=== PATIENT | female | born 1990 | race Caucasian/White ===

== ENCOUNTER → 2019-07-03 | Outpatient (CLI) | payer OTHER ==
--- NOTE | 2019-07-03 08:10 | US ---
EXAMINATION TYPE: US pelvic complete DATE OF EXAM: 07/03/2019 COMPARISON: NONE CLINICAL HISTORY: N92.0 Excessive and frequent menstruation with reg. Heavy bleeding with menses. TECHNIQUE: Transabdominal (TA Date of LMP: 06/07/2019 EXAM MEASUREMENTS: Uterus: 8.3 x 4.7 x 5.3 cm Endometrial Stripe: 0.6 cm Right Ovary: 2.8 x 1.6 x 2.1 cm Left Ovary: 2.7 x 1.4 x 2.3 cm 1. Uterus: Anteverted wnl 2. Endometrium: wnl 3. Right Ovary: wnl 4. Left Ovary: wnl. 5. Bilateral Adnexa: wnl 6. Posterior cul-de-sac: wnl IMPRESSION: Endometrial thickness is within normal limits for a premenopausal female measuring 0.6 cm . Myometrium is homogeneous. No discrete leiomyoma is seen. Unremarkable pelvic ultrasound.
== END | disposition home or self-care (01) ==
LOC: RADUSWWP 07:23
PROVIDERS: ATTEND Family Medicine
DX: N92.0 Excessive and frequent menstruation with regular cycle (principal)
CPT/HCPCS: 76856

== ENCOUNTER → 2019-07-24 | Outpatient (CLI) | payer OTHER ==
--- NOTE | 2019-07-24 09:58 | USB ---
Reason for exam: clinical finding. 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 US Breast Limited BILAT Right limited breast ultrasound including focal area of concern, retroareolar and axilla demonstrates no cystic or solid lesion seen. Left complete breast ultrasound includes all four quadrants, the retroareolar region and axilla. Finding demonstrates no cystic or solid lesion seen. These results were verbally communicated with the patient and result sheet given to the patient on 07/24/19. ASSESSMENT: Negative, BI-RAD 1 RECOMMENDATION: Routine screening mammogram of both breasts at age 33. Manage on a clinical basis with regard to pain and palpable.
== END | disposition home or self-care (01) ==
LOC: RADUSWWP 08:08
PROVIDERS: ATTEND Family Medicine
DX: N63.20 Unspecified lump in the left breast, unspecified quadrant (principal); N63.10 Unspecified lump in the right breast, unspecified quadrant

== ENCOUNTER → 2020-12-07 | Outpatient (CLI) | payer OTHER ==
--- NOTE | 2020-12-07 15:32 | CONS ---
CONSULTATION DATE OF SERVICE: 12/07/2020 A 30-year-old lady who has been evaluated in the sleep center for possible obstructive sleep apnea-hypopnea syndrome. HISTORY OF PRESENT ILLNESS/SLEEP-WAKE EVALUATION: The patient usual sleep schedule on weekdays from 10:30 p.m. to 6 a.m. on weekends from 11:30 p.m. to 9 a.m. She does have problems with falling asleep. It may take more than 30 minutes for her to fall asleep. She has TV set in the bedroom. She usually sleeps on the side position and stomach position. According to her , she snores and has witnessed episodes of stopped breathing during sleep by him. She wakes up from sleep 2 times with one episode of nocturia. In the morning, the patient wakes up tired, has episodes of anxiety. [place] Sleepiness Scale increased to 10. PAST MEDICAL HISTORY: Basically negative. PAST SURGICAL HISTORY: . MEDICATIONS: None. FAMILY HISTORY: Stroke, heart problems, asthma, diabetes, sleep apnea. REVIEW OF SYSTEMS: Multiple awakenings from sleep, sleepiness during the day. PHYSICAL EXAMINATION: GENERAL: lady without distress. VITAL SIGNS: BP 108/67, HR 71, RR 12, height 5 feet 3 inches, weight 201.2, temperature 97.8, oxygen saturation at room air 98%. HEENT: PERRLA, EOMI. Oropharynx low position of soft palate. Mallampati 3. NECK: 14 inches in circumference. LUNGS: Clear to percussion and to auscultation. Good air exchange. No wheezing or rhonchi. HEART: S1, S2 regular. No murmurs, gallops, or rubs. ABDOMEN: Soft and nontender. Bowel sounds are present. No organomegaly appreciated. EXTREMITIES: No clubbing or cyanosis. [employer] HELPER: Awake, alert, and oriented X3. Cranial nerves 2 to 7 intact. There is no fasciculation or atrophy. noted. No focal deficits observed. IMPRESSION: 1. Snoring, witnessed episodes of stopped breathing during sleep. Awakenings from sleep with nocturia, low position of soft palate, sleepiness. [place] Sleepiness Scale increased to 10. Obstructive sleep apnea-hypopnea syndrome. 2. Obesity, body mass index 35.6. 3. Status post . 4. Sleepiness and fatigue during the day. PLAN: 1. Polysomnography for evaluation of patient's breathing during sleep. 2. CPAP/BiPAP titration if sleep study confirms obstructive sleep apnea-hypopnea syndrome. 3. Preferable position during sleep on the side. 4. No driving if patient feels any sleepiness. 5. I will see patient for follow up visit to explain results of testing and following plan. Thank you very much for referring this patient for consultation. Sincerely, Ron Worthy MD, PhD, FAASM Diplomat of [employer] [place] [employer] [place] [employer] [facility] MMODL / IJN: [id number] /
== END ==
LOC: SLEEP 13:43
PROVIDERS: ATTEND Internal Medicine
DX: G47.33 Obstructive sleep apnea (adult) (pediatric) (principal); E66.9 Obesity, unspecified; Z68.35 Body mass index [BMI] 35.0-35.9, adult; Z98.890 Other specified postprocedural states
CPT/HCPCS: 99211

== ENCOUNTER 2021-08-31 09:23 | Observation (INO) | payer OTHER ==
[2021-08-31] MEDS ORDERED: ASPIRIN 81 MG PO STA (09:48)
[2021-08-31] MEDS ORDERED: NITROGLYCERIN SL TABS 0.4 MG TAB SUBLINGUAL STA (09:48)
--- NOTE | 2021-08-31 09:54 | ED ---
Chest Pain HPI - General Chief Complaint: Chest Pain Stated Complaint: Chest Pain Time Seen by Provider: 08/31/21 09:31 Source: patient, RN notes reviewed Mode of arrival: ambulatory Limitations: no limitations - History of Present Illness Initial Comments: 31-year-old female with a history of protein C clotting disorder but no prior history of heart or lung disease who states she had the onset around 5 PM last evening of retrosternal chest pressure feeling who was on her chest no more than 3/10 severity but this morning around 4 5 AM surgery rating to her left shoulder and left neck up to her left ear. She has some dizziness some shortness of breath and palpitations no fevers chills nausea vomiting sweats cough or phlegm production no recent reports of heavy lifting. She was seen by her PCP this morning and directed to come here for evaluation. 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 Nothing seems make the pain worse or better. MD Complaint: chest pain - Related Data Home Medications Medication Instructions Recorded Confirmed No Known Home Medications 08/31/21 08/31/21 Allergies Allergy/AdvReac Type Severity Reaction Status Date / Time No Known Allergies Allergy Verified 08/31/21 09:56 Review of Systems ROS Statement: Those systems with pertinent positive or pertinent negative responses have been documented in the HPI. ROS Other: All systems not noted in ROS Statement are negative. EKG Findings - EKG Results: EKG: interpreted by JULIO CESAR, sinus rhythm (Sinus rhythm a 68. A 150 QRS 70 QT since QTC 392/[address]-T wave changes) Past Medical History Additional Past Medical History / Comment(s): protein C clotting disorder History of Any Multi-Drug Resistant Organisms: None Reported Past Surgical History: Section Past Psychological History: No Psychological Hx Reported Smoking Status: Never smoker Past Alcohol Use History: None Reported Past Drug Use History: None Reported General Exam - General Exam Comments Initial Comments: This is a well-developed well-nourished awake alert oriented 3 female Limitations: no limitations General appearance: anxious Head exam: Present: atraumatic, normocephalic, normal inspection Eye exam: Present: normal appearance, PERRL, EOMI. Absent: scleral icterus, conjunctival injection, periorbital swelling ENT exam: Present: normal exam, mucous membranes moist Neck exam: Present: normal inspection, full ROM, other (Spell or bruits). Absent: tenderness, meningismus, lymphadenopathy Respiratory exam: Present: normal lung sounds bilaterally. Absent: respiratory distress, wheezes, rales, rhonchi, stridor Cardiovascular Exam: Present: regular rate, normal rhythm, normal heart sounds. Absent: systolic murmur, diastolic murmur, rubs, gallop, clicks GI/Abdominal exam: Present: soft, normal bowel sounds. Absent: distended, tenderness, guarding, rebound, rigid, bruit, pulsatile mass Extremities exam: Present: normal inspection, full ROM, normal capillary refill. Absent: tenderness, pedal edema, joint swelling, calf tenderness Back exam: Present: normal inspection Neurological exam: Present: alert, oriented X3, CN II-XII intact Psychiatric exam: Present: normal affect, normal mood Skin exam: Present: warm, dry, intact, normal color. Absent: rash Course Vital Signs 08/31/21 08/31/21 08/31/21 09:26 10:31 11:18 Temperature 99 F Pulse Rate 78 76 Pulse Rate [ 74 Sitting Pulse Oximetery] Respiratory 18 18 Rate Blood Pressure 138/86 123/92 O2 Sat by Pulse 98 96 Oximetry 08/31/21 12:22 Temperature Pulse Rate 89 Pulse Rate [ Sitting Pulse Oximetery] Respiratory 18 Rate Blood Pressure 123/84 O2 Sat by Pulse 99 Oximetry Chest Pain MDM - MDM Imaging reviewed no evidence of infiltrates PE or abnormalities I did a long discussion with the patient regarding the findings she currently asymptomatic however was having intermittent discomfort she will be admitted for inpatient evaluation she has requested Dr. Leonardo who is agreed to accept her on her service. Disposition Clinical Impression: Chest pain Disposition: ADMITTED IP TO THIS [facility] Condition: Stable Referrals: Conrado Doherty MD [Primary Care Provider] - 1-2 days
[2021-08-31 10:12] LABS: Basophils # (A) 0.1 k/uL (0-0.2); Basophils % (A) 1 %; Eosinophils # (A) 0.2 k/uL (0-0.7); Eosinophils % (A) 3 %; HCT 45.8 % (34.0-46.0); HGB 15.6 gm/dL (11.4-16.0); Lymphocytes # (A) 2.1 k/uL (1.0-4.8); Lymphocytes % (A) 32 %; MCH 31.3 pg (25.0-35.0); Mean Platelet Volume 7.6; Monocytes # (A) 0.3 k/uL (0-1.0); Monocytes % (A) 5 %; Neutrophils # (A) 3.8 k/uL (1.3-7.7); Neutrophils % (A) 58 %; Platelet Count 335 k/uL (150-450); RBC 4.98 m/uL (3.80-5.40); RDW 12.6 % (11.5-15.5); WBC 6.6 k/uL (3.8-10.6)
[2021-08-31 10:34] LABS: INR 0.9 (<1.2); Partial Thromboplastin Time 24.8 sec (22.0-30.0); Prothrombin Time 10.1 sec (9.0-12.0)
[2021-08-31 10:36] LABS: ALT 20 U/L (4-34); AST 27 U/L (14-36); African American GFR (CKD) >90 (>60 ml/min/1.73 sqM); Albumin 4.4 g/dL (3.5-5.0); Alkaline Phosphatase 86 U/L (38-126); Anion Gap 10 mmol/L; Blood Urea Nitrogen 11 mg/dL (7-17); Calcium 9.7 mg/dL (8.4-10.2); Carbon Dioxide 22 mmol/L (22-30); Chloride 106 mmol/L (98-107); Glucose 97 mg/dL (74-99); Lipase 123 U/L (23-300); Magnesium 1.5 mg/dL (1.6-2.3); Non-African American GFR(CKD) >90 (>60 ml/min/1.73 sqM); Potassium 4.1 mmol/L (3.5-5.1); Sodium 138 mmol/L (137-145); Total Bilirubin 0.6 mg/dL (0.2-1.3); Total Protein 7.5 g/dL (6.3-8.2)
--- NOTE | 2021-08-31 11:29 | XR ---
EXAMINATION TYPE: XR chest 2V DATE OF EXAM: 08/31/2021 COMPARISON: NONE HISTORY: Chest pain TECHNIQUE: Frontal and lateral views of the chest are obtained. FINDINGS: There is no focal air space opacity. No evidence for pneumothorax. No pleural effusion. The cardiac silhouette size is within normal limits. The osseous structures are grossly intact. IMPRESSION: 1. No acute cardiopulmonary process.
--- NOTE | 2021-08-31 12:48 | CT ---
EXAMINATION TYPE: CT angio chest DATE OF EXAM: 08/31/2021 COMPARISON: Chest x-ray 08/31/2021 HISTORY: Left sided chest and shoulder pain. CT DLP: 366.2 mGycm Automated exposure control for dose reduction was used. CONTRAST: CTA scan of the thorax is performed with IV Contrast, patient injected with 100 mL of Isovue 370, pul monary embolism protocol. MIP images are created and reviewed. 3D reconstructed images are created on an independent workstation and reviewed. FINDINGS: LUNGS: The lungs are showing a nodule in the right lower lung, 8 mm in size, smooth margins in the choudhury bpleural location, axial image 73. Minimal atelectatic change suspected in the lingula. There is no pleural effusion or pneumothorax seen. The tracheobronchial tree is patent. AORTA: No additional significant abnormality is seen. MEDIASTINUM: There is satisfactory enhancement of the pulmonary artery and its branches, there is no CT evidence for pulmonary embolism. There are no greater than 1 cm hilar or mediastinal lymph nodes. No pericardial effusion is seen. OTHER: No additional significant abnormality is seen. IMPRESSION: NO PULMONARY EMBOLISM. INDETERMINATE LUNG NODULE RIGHT LOWER LOBE, INDETERMINATE, FOLLOW-UP RECOMMEND ED
[2021-08-31] MEDS ORDERED: NITROGLYCERIN SL TABS 0.4 MG TAB SUBLINGUAL PRN (13:52)
[2021-08-31] MEDS ORDERED: HEPARIN SODIUM 1,000 UN/ML (10ML VL) IV ONE (13:52)
[2021-08-31] MEDS ORDERED: HEPARIN SOD,PORK IN 0.45% NACL 25,000 UNIT in 0.45% NACL 1 250ML.BAG IV SCH (14:00)
[2021-08-31] MEDS ORDERED: SODIUM CHLORIDE 0.9% 1,000 ML IV SCH (14:00)
[2021-08-31] MEDS ORDERED: ACETAMINOPHEN TAB 325 MG TAB PO PRN (15:31)
[2021-08-31] MEDS ORDERED: IPRATROPIUM-ALBUTEROL 3 ML NEB INHALATION PRN (15:31)
[2021-08-31] MEDS ORDERED: ONDANSETRON 4 MG/2 ML VIAL IVP PRN (15:31)
--- NOTE | 2021-08-31 15:41 | P.HPIM ---
History of Present Illness H&P Date: 08/31/21 History of present illness 31 years old female patient of Dr. Alanis with with history of protein C deficiency comes in with acute onset of chest pressure that started at 5 in the evening and persisted to the morning. 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 She denies any shortness of breath or sweating associated with chest pressure. The chest pain was substernal and radiated to the jaw and her neck. She has significant family history of coronary artery disease and her mother had heart disease in the early 30s. Vitals evaluated in the ER patient had temp of 99 pulse 78 respiratory rate 18 blood pressure 138/86 oxygenating at 98% room air Labs are reviewed WBC 6.6 hemoglobin 15.6 d-dimer 0.69 and creatinine 0.85 glucose 97 magnesium was 1.5 mg once a normal troponin 1 is negative Due to patient's significant family history and typical chest pain, associated need to be ruled out. Patient will be kept in observation with repeat in troponin. Cardiology consulted echocardiogram ordered. Patient may benefit from a stress test. EKG suggested normal sinus rhythm with with T-wave inversions involving inferior leads CT angiogram was negative for PE ROS Constitutional: Denies chills, Denies fever, Denies lethargy, Denies malaise, Denies poor appetite, Denies weakness, Denies weight loss Eyes: denies decreased vision, denies diplopia, denies discharge, denies pain Ears: deny: decreased hearing Ears, nose, mouth and throat: Denies dental pain, Denies headache, Denies nasal discharge, Denies nose pain Cardiovascular: Endorses chest pain, Denies decreased exercise tolerance, Denies edema, Denies high blood pressure, Denies irregular heart beat, Denies palpitations, Denies paroxysmal nocturnal dyspnea, Denies rapid heart beat, Denies shortness of breath Respiratory: Denies congestion, Denies cough, Denies cough with sputum, Denies dyspnea, Denies home oxygen, Denies wheezing Gastrointestinal: Denies abdominal pain, Denies change in bowel habits, Denies coffee ground emesis, Denies early satiety, Denies excessive gas, Denies heartburn, Denies hematemesis, Denies hematochezia, Denies loss of appetite, Denies nausea, Denies vomiting Genitourinary: Denies dysuria, Denies flank pain, Denies kidney stones, Denies menorrhagia, Denies urgency, Denies urinary frequency Musculoskeletal: Denies gait dysfunction, Denies limitation of motion, Denies morning stiffness, Denies muscle cramps Integumentary: Denies rash, Denies wounds, Denies brittle nails, Denies change in hair/nails, Denies darkening of skin Neurological: Denies balance difficulties, Denies change in speech, Denies double vision, Denies gait dysfunction, Denies loss of vision, Denies motor disturbance, Denies numbness, Denies paralysis, Denies paresthesias, Denies seizures Psychiatric: Denies anxiety, Denies depression Endocrine: Denies excessive sweating, Denies excessive thirst, Denies high blood sugars, Denies palpitations Hematologic/Lymphatic: Denies easy bruising, Denies lymphadenopathy Social history Nonsmoker Nondrinker No illicit drug use Family history Mother at 50, had significant coronary artery disease with multiple stents. Patient mother had early coronary artery disease in her 30s Father is alive is coronary artery bypass grafting, 3 myocardial infarction, stroke, diabetes started having heart disease in his 50s One sister with high blood pressure 1 brother no significant medical problems 1 children no significant medical problem 4 miscarriages due to protein C deficiency Physical exam - Constitutional General appearance: cooperative, no acute distress, obese - EENT Eyes: anicteric sclerae, PERRLA, normal appearance ENT: hearing grossly normal - Neck Neck: no lymphadenopathy, normal ROM, no other, no rigidity, no stridor, no thyromegaly - Respiratory Respiratory: bilateral: CTA, negative: diminished, dullness, rales, rhonchi - Cardiovascular Rhythm: Tachycardia Heart sounds: normal: S1, S2 Abnormal Heart Sounds: no systolic murmur, no diastolic murmur, no rub, no S3 Gallop, no S4 Gallop, no click, no other - Gastrointestinal General gastrointestinal: normal bowel sounds, soft nontender - Integumentary Integumentary: no rash - Neurologic Neurologic: No gross motor deficit- Musculoskeletal Musculoskeletal: gait normal, strength equal bilaterally - Psychiatric Psychiatric: A&O x's 3, appropriate affect Assessment and plan Acute typical chest pain -Rule out ACS - EKG suggests or T-wave inversions in inferior leads - Aspirin 81 mg by mouth daily - Echocardiogram ordered - Cardiology consulted - Troponin 3q3 - TSH ordered - Lipid panel ordered - We'll evaluate with stress test if negative patient may benefit with Protonix for 3 months and possible event monitor to evaluate for arrhythmias Hypomagnesemia - Status post 2 g magnesium sulfate Protein C deficiency - Patient high risk of DVT, clotting disorder and strokes -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 DVT prophylaxis -Encourage ambulation GI prophylaxis - Protonix 40 mg by mouth daily Patient to be admitted for at least 2 inpatient nights for stabilization Past Medical History Additional Past Medical History / Comment(s): protein C clotting disorder History of Any Multi-Drug Resistant Organisms: None Reported Past Surgical History: Section Past Psychological History: No Psychological Hx Reported Smoking Status: Never smoker Past Alcohol Use History: None Reported Past Drug Use History: None Reported Medications and Allergies Home Medications Medication Instructions Recorded Confirmed Type No Known Home Medications 08/31/21 08/31/21 History Allergies Allergy/AdvReac Type Severity Reaction Status Date / Time No Known Allergies Allergy Verified 08/31/21 09:56 Physical Exam Vitals: Vital Signs Temp Pulse Pulse Resp BP Pulse Ox 08/31/21 12:22 89 18 123/84 99 08/31/21 11:18 74 08/31/21 10:31 76 18 123/92 96 08/31/21 09:26 99 F 78 18 138/86 98 Intake and Output 08/31/21 08/31/21 08/31/21 06:59 14:59 22:59 Other: Weight 86.183 kg Results CBC & Chem 7: 08/31/21 10:01 08/31/21 10:01 Labs: Abnormal Lab Results - Last 24 Hours (Table) 08/31/21 08/31/21 Range/Units 10:01 10:01 D-Dimer 0.69 H (<0.60) mg/L FEU Magnesium 1.5 L (1.6-2.3) mg/dL
[2021-08-31] MEDS: PANTOPRAZOLE 40 MG TABLET PO SCH (15:58)
[2021-08-31 16:21] LABS: Creatine Kinase 162 U/L (30-135)
[2021-08-31] MEDS: MAGNESIUM SULFATE-D5W PMX 1 GM in DEXTROSE/WATER 1 100ML.BAG IVPB SCH ×2 (16:22→17:23)
[2021-08-31] MEDS: NITROGLYCERIN OINT 1 INCH/GM PACKET TOPICAL SCH ×2 (17:25→22:53)
[2021-09-01] MEDS: NITROGLYCERIN OINT 1 INCH/GM PACKET TOPICAL SCH (06:10)
[2021-09-01 07:54] VITALS: BP 105/68; PULSE 80; RESP 18; TEMP 97.9
[2021-09-01] MEDS: PANTOPRAZOLE 40 MG TABLET PO SCH (08:43)
--- NOTE | 2021-09-01 08:49 | US ---
EXAMINATION TYPE: US venous doppler duplex LE DATE OF EXAM: 09/01/2021 8:38 AM COMPARISON: NONE CLINICAL HISTORY: Rule out DVT bilaterally. On IV heparin. Elevated DDimer. No leg pain. No rednes s. No swelling. SIDE PERFORMED: Bilateral TECHNIQUE: The lower extremity deep venous system is examined utilizing real time linear array sonog mian with graded compression, doppler sonography and color-flow sonography. VESSELS IMAGED: Common Femoral Vein Deep Femoral Vein Greater Saphenous Vein * Femoral Vein Popliteal Vein Small Saphenous Vein * Proximal Calf Veins (* superficial vessels) Right Leg: Negative for DVT Left Leg: Negative for DVT IMPRESSION: 1. Bilateral lower extremity ultrasound negative for deep venous thrombosis.
[2021-09-01] MEDS ORDERED: ASPIRIN 325 MG TAB PO SCH (09:00)
[2021-09-01] MEDS ORDERED: COLCHICINE 0.6 MG EACH PO ONE (09:00)
--- NOTE | 2021-09-01 09:27 | P.CRDCN ---
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 We have been asked to see in consultation for chest pain. Patient presents emergency department with complaints of retrosternal chest pressure. Patient states on Saturday around 4PM She was watching TV and started to have retrosternal/left sided chest pressure. She describes as someone stepping on her chest. She states the pain was constant, lasted all evening and through Saturday night. She states yesterday morning in addition to the chest pressure, she had left arm pain and left jaw pain. She continues to have left sided chest pressure this morning, this morning she feels as if it was behind her left breast. The pain is non-radiating, nonexertional. When she takes a deep breath, she feels the pain increase. The pain is not reproducible. There is no change with movement. She does feel more short of breath when she lies flat. Yesterday she did feel slightly dizzy and felt the room spinning. She denies any syncope or near- syncope. She denies any symptoms of orthopnea or PND. Denies history of hypertension, diabetes, coronary artery disease, OR, stroke, hyperlipidemia. She denies any family history of coronary artery disease. She denies any daily alcohol use, she denies any history or current tobacco use. DIAGNOSTICS EKG on admission sinus rhythm, heart rate 68, T wave inversions in leads III and flattening in leads V2, Slow R wave progression. No prior EKG to compare EKG this morning revealed mild ST changes in all leads concerning for pericarditis Telemetry tracings indicate sinus mechanism, heart rate 60s to 70s CT chest revealed no evidence of pulmonary embolism. Intermediate lung nodule right lower lobe US Bilateral Lower extremities- negative for DVT bilaterally Laboratory reviewed, CBC unremarkable, d-dimer 0.69, sodium 138, potassium 4.1, BUN 11, serum creatinine 0.8, magnesium 1.5, troponin negative 3, proBNP 89 Current home medications include none REVIEW OF SYSTEMS At the time of my exam: CONSTITUTIONAL: Denies fever or chills. CARDIOVASCULAR: + chest pain, +shortness of breath, Denies orthopnea, PND or palpitations. RESPIRATORY: Denies cough. GASTROINTESTINAL: Denies abdominal pain, diarrhea, constipation, nausea or vomiting. MUSCULOSKELETAL: Denies myalgias. NEUROLOGIC: +dizziness Denies numbness, tingling, headache or weakness. ENDOCRINE: Denies fatigue, weight change, polydipsia or polyurina. GENITOURINARY: Denies burning, hematuria or urgency with micturation. HEMATOLOGIC: Denies history of anemia or bleeding. PHYSICAL EXAMINATION Vitals: reviewed CONSTITUTIONAL: No apparent distress. HEENT: Head is normocephalic. Pupils are equal, round. Sclerae anicteric. Mucous membranes of the mouth are moist. No JVD. No carotid bruit. CHEST EXAMINATION: Lungs are clear to auscultation. No chest wall tenderness is noted on palpation or with deep breathing. HEART EXAMINATION: Regular rate and rhythm. S1, S2 heard. No murmurs, gallops or rub. ABDOMEN: Soft, nontender. Positive bowel sounds. EXTREMITIES: 2+ peripheral pulses, no lower extremity edema and no calf tenderness. SKIN: warm, dry NEUROLOGIC EXAMINATION: Patient is awake, alert and oriented x3. ASSESSMENT Chest pain, atypical acute coronary syndrome ruled out EKG this morning with change concerning for Pericarditis History of protein C clotting disorder PLAN -An acute coronary event has been ruled out with no EKG evidence of ischemia and negative cardiac enzymes. -Obtain 2D echocardiogram and doppler study to assess cardiac structure and function. -Give colchicine 1.2mg once -Start colchicine 0.6mg daily -Stop Nitroglycerin and IV heparin -We will not perform stress test at this time -If patient's pain improves, no acute findings on Echo ok to discharge today and follow up with Dr. Calderón in the office Thank you kindly for this consultation. Nurse Practitioner note has been reviewed, I agree with a documented findings and plan of care. Patient was seen and examined. Past Medical History Additional Past Medical History / Comment(s): protein C clotting disorder History of Any Multi-Drug Resistant Organisms: None Reported Past Surgical History: Section Past Psychological History: No Psychological Hx Reported Smoking Status: Never smoker Past Alcohol Use History: None Reported Past Drug Use History: None Reported - Past Family History Father Family Medical History: Coronary Artery Disease (CAD), Dialysis Mother Family Medical History: Coronary Artery Disease (CAD), Diabetes Mellitus Medications and Allergies Home Medications Medication Instructions Recorded Confirmed Type No Known Home Medications 08/31/21 08/31/21 History Allergies Allergy/AdvReac Type Severity Reaction Status Date / Time No Known Allergies Allergy Verified 08/31/21 09:56 Physical Exam Vitals: Vital Signs Temp Pulse Pulse Resp BP Pulse Ox 08/31/21 12:22 89 18 123/84 99 08/31/21 11:18 74 08/31/21 10:31 76 18 123/92 96 08/31/21 09:26 99 F 78 18 138/86 98 Intake and Output 08/30/21 08/31/21 08/31/21 22:59 06:59 14:59 Other: Weight 86.183 kg Results 08/31/21 10:01 08/31/21 10:01 Cardiac Enzymes 08/31/21 08/31/21 Range/Units 10:01 10:01 AST 27 (14-36) U/L Troponin I <0.012 (0.000-0.034) ng/mL Coagulation 08/31/21 Range/Units 10:01 PT 10.1 (9.0-12.0) sec APTT 24.8 (22.0-30.0) sec CBC 08/31/21 Range/Units 10:01 WBC 6.6 (3.8-10.6) k/uL RBC 4.98 (3.80-5.40) m/uL Hgb 15.6 (11.4-16.0) gm/dL Hct 45.8 (34.0-46.0) % Plt Count 335 (150-450) k/uL Comprehensive Metabolic Panel 08/31/21 Range/Units 10:01 Sodium 138 (137-145) mmol/L Potassium 4.1 (3.5-5.1) mmol/L Chloride 106 (98-107) mmol/L Carbon Dioxide 22 (22-30) mmol/L BUN 11 (7-17) mg/dL Creatinine 0.85 (0.52-1.04) mg/dL Glucose 97 (74-99) mg/dL Calcium 9.7 (8.4-10.2) mg/dL AST 27 (14-36) U/L ALT 20 (4-34) U/L Alkaline Phosphatase 86 (38-126) U/L Total Protein 7.5 (6.3-8.2) g/dL Albumin 4.4 (3.5-5.0) g/dL Current Medications Generic Name Dose Route Start Last Admin Trade Name Freq PRN Reason Stop Dose Admin Aspirin 325 mg 09/01/21 09:00 Aspirin 325 Mg Tab PO DAILY [facility] Sodium Chloride 1,000 mls @ 20 mls/hr 08/31/21 14:00 Saline 0.9% IV .Q24H [facility] Heparin Sodium/Sodium Chloride 250 mls @ 10 mls/hr 08/31/21 14:00 25,000 unit/ Sodium Chloride IV .Q24H [facility] Protocol 11.603 UNITS/KG/HR Nitroglycerin 0.4 mg 08/31/21 13:52 Nitroglycerin Sl Tabs 0.4 Mg Tab SUBLINGUAL Q5M PRN Chest Pain Nitroglycerin 1 inch 08/31/21 18:00 Nitroglycerin Oint 1 Inch/Gm Packet TOPICAL Q6HR [facility] Intake and Output 08/30/21 08/31/21 08/31/21 22:59 06:59 14:59 Other: Weight 86.183 kg Patient Weight 09/01/21 06:59 Weight 86.183 kg 08/31/21 10:01 08/31/21 10:01
[2021-09-01 10:25] LABS: Magnesium 2.1 mg/dL (1.5-2.4)
[2021-09-01 10:29] LABS: African American GFR (CKD) 112.3 (60.0-200.0); BUN/Creat Ratio 13.88 Ratio (12.00-20.00); Blood Urea Nitrogen 11.1 mg/dL (9.0-27.0); Calcium 8.6 mg/dL (8.7-10.3); Carbon Dioxide 19.2 mmol/L (20.0-27.5); Chloride 106 mmol/L (96-109); Chol/HDL Ratio 3.87 Ratio; Glucose 101 mg/dL (70-110); Non-African American GFR(CKD) 96.9 (60.0-200.0); Potassium 4.4 mmol/L (3.5-5.5); Sodium 138 mmol/L (135-145)
--- NOTE | 2021-09-01 10:50 | ECHOF ---
Referral Reason:chest pain MEASUREMENTS -------- HEIGHT: 157.5 cm WEIGHT: 86.2 kg BP: IVSd: 1.1 cm (0.6 - 1.1) LVIDd: 3.2 cm (3.9 - 5.3) LVPWd: 1.3 cm (0.6 - 1.1) EDV(Teich): 40 ml IVSs: 1.8 cm LVIDs: 1.5 cm LVPWs: 1.6 cm %IVS Thck: 63 % ESV(Teich): 6 ml EF(Teich): 84 % %FS: 52 % SV(Teich): 33 ml RVIDd: 1.9 cm (< 3.3) IVC: 14.02 mm Ao Diam: 2.6 cm (2.0 - 3.7) LA Diam: 2.4 cm (2.7 - 3.8) AV Cusp: 1.7 cm (1.5 - 2.6) EPSS: 0.6 cm MV E Gabriel: 0.85 m/s MV DecT: 219 ms MV Dec Chilton: 3.9 m/s MV A Gabriel: 0.59 m/s MV E/A Ratio: 1.45 MV PHT: 63 ms MR Vmax: 0.98 m/s MR maxP.83 mmHg AV Vmax: 1.08 m/s AV maxP.64 mmHg TR Vmax: 1.83 m/s TR maxP.39 mmHg RAP: 5.00 mmHg RVSP: 18.39 mmHg MV EF SLOPE: 56.41 mm/s (70 - 150) MV EXCURSION: 11.82 mm (> 18.000) FINDINGS -------- This was a technically good study. The left ventricular size is normal. Left ventricular wall thickness is normal. Overall left vent ricular systolic function is normal with, an EF between 55 - 60 %. The right ventricle is normal in size. The left atrial size is normal. The right atrial size is normal. The aortic valve is trileaflet and appears structurally normal. The mitral valve is normal. Mild mitral regurgitation is present. The tricuspid valve appears structurally normal. Mild tricuspid regurgitation present. Right vent ricular systolic pressure is normal at < 35 mmHg. There is no pulmonic regurgitation present. The aortic root size is normal. Normal inferior vena cava with normal inspiratory collapse consistent with estimated right atrial pre ssure of 5 mmHg. There is no pericardial effusion. POSTERIOR PERICARDIAL STRIPE CONCLUSIONS -------- 1. The left ventricular size is normal. 2. Left ventricular wall thickness is normal. 3. Overall left ventricular systolic function is normal with, an EF between 55 - 60 %. 4. Mild mitral regurgitation is present. 5. Mild tricuspid regurgitation present. 6. There is no pericardial effusion. RN SURGERY: Micaela Ovalle RDCS
--- NOTE | 2021-09-01 11:26 | P.DS ---
Providers Date of admission: 08/31/21 13:54 Expected date of discharge: 09/01/21 Attending physician: Luis Leonardo MD Consults: 08/31/21 13:52 Consult Physician Urgent Consulting Provider: Richard Blanchard Consult Reason/Comments: Chest pain Do you want consulting provider notified?: Yes Primary care physician: [facility] Course: History of present illness 31 years old female patient of Dr. Alanis with with history of protein C deficiency comes in with acute onset of chest pressure that started at 5 in the evening and persisted to the morning. 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 She denies any shortness of breath or sweating associated with chest pressure. The chest pain was substernal and radiated to the jaw and her neck. She has significant family history of coronary artery disease and her mother had heart disease in the early 30s. Vitals evaluated in the ER patient had temp of 99 pulse 78 respiratory rate 18 blood pressure 138/86 oxygenating at 98% room air Labs are reviewed WBC 6.6 hemoglobin 15.6 d-dimer 0.69 and creatinine 0.85 glucose 97 magnesium was 1.5 mg once a normal troponin 1 is negative Due to patient's significant family history and typical chest pain, associated need to be ruled out. Patient will be kept in observation with repeat in troponin. Cardiology consulted echocardiogram ordered. Patient may benefit from a stress test. EKG suggested normal sinus rhythm with with T-wave inversions involving inferior leads CT angiogram was negative for PE 09/01: Ultrasound of bilateral lower extremities negative for DVT. Patient has been seen by cardiology and acute coronary syndrome has been ruled out. Colchicine started and nitroglycerin and IV heparin discontinued. Patient may follow-up with Dr. Calderón in the office. Patient states that she had some left shoulder and chest discomfort after taking colchicine. We will start the patient on ibuprofen. Echocardiogram reveals ejection fraction of 55-60% with mild mitral regurgitatio n and mild tricuspid regurgitation Repeat blood work reveals triglycerides 114, cholesterol 175, LDl 107, HDL 85. BMP unremarkable. Patient will be discharged home today in stable condition. DISCHARGE DIAGNOSES Acute typical chest pain Hypomagnesemia Protein C deficiency DISCHARGE PLAN Home Greater than 35 minutes was utilized and coordinating patient's discharge. Impression and plan of care have been directed as dictated by the signing physician. Brittani Coto nurse practitioner acting as scribe for signing physician. Patient Condition at Discharge: Good Plan - Discharge Summary Discharge Rx Participant: Yes New Discharge Prescriptions: New Ibuprofen [Motrin] 600 mg PO TID tab Discharge Medication List Ibuprofen [Motrin] 600 mg PO TID tab 09/01/21 [Rx] Follow up Appointment(s)/Referral(s): Juno Calderón MD [STAFF PHYSICIAN] - 2 Weeks Conrado Doherty MD [Primary Care Provider] - 1 Week Discharge Disposition: HOME SELF-CARE
[2021-09-01] MEDS ORDERED: IBUPROFEN 600 MG TAB PO SCH (11:30)
[2021-09-01] MEDS ORDERED: KETOROLAC 30 MG/ML 1 ML VIAL IVP STA (11:38)
[2021-09-02] MEDS ORDERED: COLCHICINE 0.6 MG EACH PO SCH (09:00)
== END 2021-09-01 13:29 | disposition home or self-care (01) ==
LOC: EC 09:23 → 6NMEDSUR 13:54
PROVIDERS: ADMIT Internal Medicine; ATTEND Internal Medicine
DX: R07.2 Precordial pain (principal); E83.42 Hypomagnesemia; D68.59 Other primary thrombophilia; R00.2 Palpitations; M79.602 Pain in left arm; R68.84 Jaw pain; I08.1 Rheumatic disorders of both mitral and tricuspid valves; R91.1 Solitary pulmonary nodule; Z20.822 Contact with and (suspected) exposure to COVID-19; N96 Recurrent pregnancy loss; E66.9 Obesity, unspecified; Z68.34 Body mass index [BMI] 34.0-34.9, adult; Z98.891 History of uterine scar from previous surgery; Z82.3 Family history of stroke; Z83.3 Family history of diabetes mellitus; Z82.49 Family history of ischemic heart disease and other diseases of the circulatory system
CPT/HCPCS: 99285; 96366 ×2; 96376; 96365 ×2; 36415; 93005; 93306; 85379; 83880; 80061; 80053; 80048; 85652; 84443; 82550; 83690; 83735 ×2; 84484; 85025; 85610; 85730 ×2; 84145; 87635; 71046; 93970; 71275; G0378 ×2; J1644 ×2; J3475; Q9967; 96367

== ENCOUNTER → 2022-07-31 | Outpatient (CLI) | payer OTHER ==
--- NOTE | 2022-07-31 09:14 | CT ---
EXAMINATION TYPE: CT chest w con CT DLP: 538 mGycm, Automated exposure control for dose reduction was used. DATE OF EXAM: 07/31/2022 9:02 AM COMPARISON: CT angiogram chest 08/31/2021 CLINICAL INDICATION:Female, 32 years old with history of R91.1 SOLITARY PULMONARY NODULE; TECHNIQUE: Multiple axial images were obtained through the chest. Sagittal and coronal reformats were created for review. Contrast used:100 mL of Isovue 300 with IV Contrast. Oral contrast used: none. FINDINGS: LUNGS/ PLEURA: Similar right lower lobe 7 mm pulmonary nodule series 4 image 25. Left intrafissural l ymph node. (Series 4 image 23) no focal consolidation, pneumothorax or pleural effusion. AIRWAY: Patent and unremarkable. HEART: Size within normal limits. MEDIASTINUM: No gross evidence of adenopathy. VASCULATURE: No aortic aneurysm. MUSCULOSKELETAL: No acute osseous abnormalities, mild multilevel disc degeneration changes. SOFT TISSUES/LYMPH NODES: Unremarkable. LOWER NECK: No significant findings. UPPER ABDOMEN: Diffuse low-attenuation to the liver parenchyma. IMPRESSION: 1. Stable 7 mm right lower lobe superior segment pulmonary nodule. Consider follow-up imaging in one year. 2. Hepatic steatosis.
== END | disposition home or self-care (01) ==
LOC: RADCTMAIN 08:07
PROVIDERS: ATTEND Internal Medicine
DX: K76.0 Fatty (change of) liver, not elsewhere classified (principal); R91.1 Solitary pulmonary nodule
CPT/HCPCS: 71260; Q9967

== ENCOUNTER → 2023-07-11 | Outpatient (CLI) | payer OTHER ==
--- NOTE | 2023-07-11 08:20 | CT ---
EXAMINATION TYPE: CT chest wo con DATE OF EXAM: 07/11/2023 COMPARISON: 07/31/2022 and 08/31/2021 HISTORY: h/o lung nodule, f/u CT DLP: 349.[address] of the chest was performed with lung and mediastinal window settings submitted. The la ck of contrast limits evaluation of the vascular, mediastinal and parenchymal structures including th e upper abdomen. LUNGS: The lungs are clear and free of infiltrate. No atelectasis. Right lower lobe pulmonary nodule measures 6 mm versus 7 mm previously seen best on image 26. Nodule appears smaller dating back to . No pleural effusion. No CT evidence of interstitial lung disease. MEDIASTINUM/KT: Thoracic aorta is of normal caliber with limited evaluation given lack of contrast . The heart is not enlarged. No evidence for mediastinal mass. No lymph nodes greater than 1cm. UPPER ABDOMEN: No significant abnormality is seen. OTHER: No significant other abnormality. IMPRESSION: 1. Right lower lobe pulmonary nodule measures 6 mm versus 7 mm previously seen best on image 26. Nod ule appears smaller dating back to 2020.
== END | disposition home or self-care (01) ==
LOC: RADCTMAIN 07:49
PROVIDERS: ATTEND Internal Medicine
DX: R91.1 Solitary pulmonary nodule (principal)
CPT/HCPCS: 71250

== ENCOUNTER 2023-07-30 08:01 | Emergency (ER) | payer OTHER ==
[2023-07-30] MEDS ORDERED: MORPHINE SULFATE 2 MG/ML SYRINGE IVP STA (08:42)
[2023-07-30] MEDS ORDERED: KETOROLAC 15 MG/ML 1 ML VIAL IVP STA (08:42)
--- NOTE | 2023-07-30 08:57 | ED ---
Skin/Abscess/FB HPI - General Chief complaint: Recheck/Abnormal Lab/Rx Stated complaint: spider bite Time Seen by Provider: 07/30/23 08:12 Source: patient, RN notes reviewed Mode of arrival: ambulatory Limitations: no limitations - History of Present Illness Initial comments: This is a 33-year-old female who presents to the emergency department for tramaine rns of a spider bite. States that on 07/24, she noticed what appeared to be a bite wound on the right upper abdomen. This enlarged and became increasingly painful. She subsequently went to urgent care on 07/27 and was started on Keflex. States that since starting the antibiotic, this has continued to enlarge and is getting increasingly painful. They did draw around this with a marker, and it has since spread past the outline. She's not had any drainage from this area. Also denies any nausea, vomiting, or fevers. However, states that any movement is painful. She is taking ibuprofen with no relief in symptoms. MD complaint: rash, abscess/boil - Related Data Previous Rx's Medication Instructions Recorded Ibuprofen [Motrin] 600 mg PO TID tab 09/01/21 Ketorolac [Toradol] 10 mg PO Q6HR PRN #15 tab 07/30/23 Sulfamethox-Tmp 800-160Mg [Bactrim 1 tab PO Q12HR 10 Days #20 tab 07/30/23 DS 800-160 mg] Allergies Allergy/AdvReac Type Severity Reaction Status Date / Time No Known Allergies Allergy Verified 07/30/23 08:11 Review of Systems ROS Statement: Those systems with pertinent positive or pertinent negative responses have been documented in the HPI. ROS Other: All systems not noted in ROS Statement are negative. Past Medical History Additional Past Medical History / Comment(s): protein C clotting disorder, Lupus, Pericarditis History of Any Multi-Drug Resistant Organisms: None Reported Past Surgical History: Section Past Psychological History: No Psychological Hx Reported Smoking Status: Never smoker Past Alcohol Use History: None Reported Past Drug Use History: None Reported - Past Family History Father Family Medical History: Coronary Artery Disease (CAD), Dialysis Mother Family Medical History: Coronary Artery Disease (CAD), Diabetes Mellitus General Exam Limitations: no limitations General appearance: alert, in no apparent distress Head exam: Present: atraumatic, normocephalic, normal inspection Respiratory exam: Present: normal lung sounds bilaterally. Absent: respiratory distress, wheezes, rales, rhonchi, stridor Cardiovascular Exam: Present: regular rate, normal rhythm, normal heart sounds. Absent: systolic murmur, diastolic murmur, rubs, gallop, clicks Neurological exam: Present: alert, oriented X3, CN II-XII intact Psychiatric exam: Present: normal affect, normal mood Skin exam: Present: other (Tender, erythematous, and indurated area over the bottom of the right rib cage. There is an elevated area at the center suggestive of developing abscess. No punctate areas or evidence of recent drainage.) Course Vital Signs 07/30/23 07/30/23 08:08 09:43 Temperature 98.6 F 98.1 F Pulse Rate 90 71 Respiratory 20 18 Rate Blood Pressure 124/78 137/84 O2 Sat by Pulse 99 97 Oximetry Medical Decision Making - Medical Decision Making This is a 33-year-old female who presents to the emergency department for concerns of a spider bite to the right side of her abdomen. Was pt. sent in by a medical professional or institution? @ -No Did you speak to anyone other than the patient for history? @ -No Did you review nursing and triage notes? @ -Yes, and I agree, it is accurate with regards to the patient's symptoms. Were old charts reviewed? @ -No Differential Diagnosis? @ -Differential Bite/Rash: Cellulitis, abscess, tumor, insect or spider bite, this is not meant to be an all-inclusive list. EKG interpreted by me (3pts min.)? @ -Not obtained X-rays interpreted by me (1pt min.)? @ -Not obtained CT interpreted by me (1pt min.)? @ -Not obtained U/S interpreted by me (1pt. min.)? @ -Not obtained What testing was considered but not performed? (CT, X-rays, U/S, labs)? Why? @ -None What meds were considered but not given? Why? @ -None Did you discuss the management of the patient with other professionals? @ -No Did you reconcile home meds? @ -No Was smoking cessation discussed for >3mins.? @ -No Was critical care preformed (if so, how long)? @ -No Were there social determinants of health that impacted care today? How? (Homelessness, low income, unemployed, alcoholism, drug addiction, transportation, low edu. Level, literacy, decrease access to med. care, [facility], rehab)? @ -No Was there de-escalation of care discussed even if they declined? (Discuss DNR or withdrawal of care, Hospice)? @ -No What co-morbidities impacted this encounter? (DM, HTN, Smoking, COPD, CAD, Cancer, CVA, Hep., AIDS, mental health diagnosis, sleep apnea, morbid obesity)? @ -None Was patient admitted / discharged? @ -Discharged. Physical examination reveals an area of induration without any fluctuance suggestive of a developing abscess. However, this has not fully developed into an abscess or reached the point where it can be drained at this time. Discussed that this will likely form into an abscess at some point and either begin draining on its own or require drainage, at which time she can return to the emergency department to have this done if needed. Advised the patient that at this point we will add Bactrim to her regimen to be taken with the Keflex. Advised she continue to use warm compresses. She was also given a prescription for Toradol for additional symptomatic management. Patient otherwise discharged home in stable condition. Undiagnosed new problem with uncertain prognosis? @ -None Drug Therapy requiring intensive monitoring for toxicity (Heparin, Nitro, Insulin, Cardizem)? @ -None Were any procedures done? @ -None Diagnosis/symptom? @ -Abscess Acute, or Chronic, or Acute on Chronic? @ -Acute Uncomplicated (without systemic symptoms) or Complicated (systemic symptoms)? @ -Uncomplicated Side effects of treatment? @ -None Exacerbation, Progression, or Severe Exacerbation] @ -Not applicable Poses a threat to life or bodily function? @ -No Return precautions reviewed in depth, the patient is instructed to return to the emergency department with any new, worsening, or concerning symptoms. Patient verbalized understanding. This case was discussed in detail with the attending ED physician, Dr. Drake. Presentation, findings, and treatment plan discussed in detail as well. - Lab Data Result diagrams: 07/30/23 08:48 07/30/23 08:48 Lab Results 07/30/23 07/30/23 07/30/23 Range/Units 08:48 08:48 08:48 WBC 6.5 (3.8-10.6) k/uL RBC 4.46 (3.80-5.40) m/uL Hgb 14.1 (11.4-16.0) gm/dL Hct 41.0 (34.0-46.0) % MCV 91.9 (80.0-100.0) fL MCH 31.5 (25.0-35.0) pg MCHC 34.3 (31.0-37.0) g/dL RDW 12.3 (11.5-15.5) % Plt Count 301 (150-450) k/uL MPV 7.5 Neutrophils % 58 % Lymphocytes % 30 % Monocytes % 5 % Eosinophils % 4 % Basophils % 1 % Neutrophils # 3.8 (1.3-7.7) k/uL Lymphocytes # 2.0 (1.0-4.8) k/uL Monocytes # 0.4 (0-1.0) k/uL Eosinophils # 0.3 (0-0.7) k/uL Basophils # 0.0 (0-0.2) k/uL Sodium 139 (137-145) mmol/L Potassium 4.2 (3.5-5.1) mmol/L Chloride 111 H (98-107) mmol/L Carbon Dioxide 19 L (22-30) mmol/L Anion Gap 9 mmol/L BUN 10 (7-17) mg/dL Creatinine 0.72 (0.52-1.04) mg/dL Est GFR (CKD-EPI)AfAm >90 (>60 ml/min/1.73 sqM) Est GFR (CKD-EPI)NonAf >90 (>60 ml/min/1.73 sqM) Glucose 95 (74-99) mg/dL Plasma Lactic Acid Sergio 1.4 (0.7-2.0) mmol/L Calcium 8.6 (8.4-10.2) mg/dL Total Bilirubin 0.6 (0.2-1.3) mg/dL AST 22 (14-36) U/L ALT 18 (4-34) U/L Alkaline Phosphatase 66 (38-126) U/L C-Reactive Protein <0.5 (<1.0) mg/dL Total Protein 6.5 (6.3-8.2) g/dL Albumin 3.7 (3.5-5.0) g/dL Disposition Clinical Impression: Abscess Disposition: HOME SELF-CARE Instructions (If sedation given, give patient instructions): Abscess (ED) Additional Instructions: Return to the emergency department with any new, worsening, or concerning symptoms. You can take the Toradol with Tylenol as needed for pain relief. If you choose to take the Toradol, do not take any other anti-inflammatories such as ibuprofen, take one or the other. Take the Bactrim as prescribed for 10 days. Take this with the Keflex. Continue to apply warm compresses. You can apply the Emla cream provided several times a day to help with the discomfort as well. If the skin breaks open and starts to drain, stop using this cream. Follow up with your primary care provider in 1-2 days. Prescriptions: Sulfamethox-Tmp 800-160Mg [Bactrim DS 800-160 mg] 1 tab PO Q12HR 10 Days #20 tab Ketorolac [Toradol] 10 mg PO Q6HR PRN #15 tab PRN Reason: Pain Is patient prescribed a controlled substance at d/c from ED?: No Referrals: Conrado Doherty MD [Primary Care Provider] - 1-2 days
[2023-07-30 09:21] LABS: Basophils % (A) 1 %; Eosinophils # (A) 0.3 k/uL (0-0.7); Eosinophils % (A) 4 %; HGB 14.1 gm/dL (11.4-16.0); Lymphocytes % (A) 30 %; MCH 31.5 pg (25.0-35.0); MCHC 34.3 g/dL (31.0-37.0); MCV 91.9 fL (80.0-100.0); Mean Platelet Volume 7.5; Monocytes # (A) 0.4 k/uL (0-1.0); Monocytes % (A) 5 %; Neutrophils # (A) 3.8 k/uL (1.3-7.7); Neutrophils % (A) 58 %; Platelet Count 301 k/uL (150-450); RBC 4.46 m/uL (3.80-5.40); RDW 12.3 % (11.5-15.5); WBC 6.5 k/uL (3.8-10.6)
[2023-07-30 09:51] VITALS: RESP 18
[2023-07-30 10:11] LABS: ALT 18 U/L (4-34); AST 22 U/L (14-36); African American GFR (CKD) >90 (>60 ml/min/1.73 sqM); Albumin 3.7 g/dL (3.5-5.0); Alkaline Phosphatase 66 U/L (38-126); Anion Gap 9 mmol/L; Blood Urea Nitrogen 10 mg/dL (7-17); Calcium 8.6 mg/dL (8.4-10.2); Carbon Dioxide 19 mmol/L (22-30); Chloride 111 mmol/L (98-107); Glucose 95 mg/dL (74-99); Non-African American GFR(CKD) >90 (>60 ml/min/1.73 sqM); Potassium 4.2 mmol/L (3.5-5.1); Sodium 139 mmol/L (137-145); Total Bilirubin 0.6 mg/dL (0.2-1.3); Total Protein 6.5 g/dL (6.3-8.2)
[2023-07-30 10:28] LABS: C Reactive Protein <0.5 mg/dL (<1.0)
[2023-07-30] MEDS ORDERED: ACET/COD 300 MG/30 MG STARTER PACK 6 TAB BTL PO STA (11:04)
[2023-07-30] MEDS ORDERED: LIDOCAINE-PRILOCAINE 2.5-2.5% CREAM 5 GM TUBE TOPICAL STA (11:07)
[2023-07-30 12:21] VITALS: BP 132/80; PULSE 68; TEMP 98.4
[2023-07-30 16:37] LABS: Erythrocyte Sedimentation Rate 21 mm/Hr (0-20)
== END 2023-07-30 12:05 | disposition home or self-care (01) ==
LOC: EC 08:01
DX: L02.211 Cutaneous abscess of abdominal wall (principal); W57.XXXA Bitten or stung by nonvenomous insect and other nonvenomous arthropods, initial encounter
CPT/HCPCS: 36415; 80053; 85652; 83605; 85025; 86140; 99283; 96374; J1885